=== PATIENT | male | born 1960 | race Caucasian/White ===

== ENCOUNTER 2023-04-20 20:40 | Inpatient (IN) | payer OTHER ==
[~2023-04-20] VITALS: Ht 185.4 cm; Wt 95.2 kg
[~2023-04-20 20:40] MED LIST: B COMPLEX FORM0.4 MG PO; B-121000 MC3 PO; BUSP10 PO; DIVA250EC PO; DULO30 PO; FLONASE ALLERG9.9 M2; GABA300 PO; MELA3 PO; Naltrexone HCl50 MG PO; OMEP20ER PO; PRAZ2 PO; THERA-D2000 UNIT PO
[2023-04-20 21:01] LABS: BASOPHILS ABSOLUTE AUTO 0.07 K/mm3 (0.00-0.23); BASOPHILS PERCENT AUTO 1 % (0-2); EOSINOPHILS PERCENT AUTO 2 % (0-6); Hematocrit 33.9 % (37.0-53.0); Hemoglobin 11.5 g/dL (13.5-17.5); IMMATURE GRAN ABSOLUTE AUTO 0.05 K/mm3 (0.00-0.10); IMMATURE GRAN PERCENT AUTO 1 % (0-1); LYMPHOCYTES ABSOLUTE AUTO 3.34 K/mm3 (0.84-5.20); LYMPHOCYTES PERCENT AUTO 37 % (21-46); MONOCYTES ABSOLUTE AUTO 0.75 K/mm3 (0.16-1.47); MONOCYTES PERCENT AUTO 8 % (4-13); Mean Corpuscular HGB 36.2 pg (26.0-34.0); Mean Corpuscular HGB Conc 33.9 g/dL (31.5-36.5); Mean Corpuscular Volume 107 fL (80-100); Mean Platelet Volume 9.7 fL (9.1-12.4); NEUTROPHILS ABSOLUTE AUTO 4.53 K/mm3 (1.96-9.15); NEUTROPHILS PERCENT AUTO 51 % (41-73); Platelet Count 322 K/mm3 (150-400); RDW Coefficient Variation 13.7 % (11.7-14.2); RDW Standard Deviation 54.6 fL (35.1-46.3); Red Blood Cell Count 3.18 M/mm3 (4.30-5.90); White Blood Cell Count 8.94 K/mm3 (4.00-11.30)
[2023-04-20 21:16] LABS: International Normalized Ratio 1.03; Prothrombin Time Results 10.8 Sec (9.7-11.5)
[2023-04-20 21:20] LABS: Albumin, Blood 3.4 g/dL (3.4-5.0); Bilirubin, Total 0.7 mg/dL (0.1-1.0); Bun/Creatinine Ratio 10.7 (12.0-20.0); Calcium, Blood 8.7 mg/dL (8.5-10.1); Creatinine, Blood 1.12 mg/dL (0.60-1.20); Globulin, Blood 3.3 g/dL (2.2-4.0); Potassium, Blood 3.8 mmol/L (3.5-5.5); Total Protein, Blood 6.7 g/dL (6.4-8.2)
[2023-04-20] MEDS ORDERED: METO25ER PO (21:46)
[2023-04-20] MEDS ORDERED: MELATONIN5 M1 PO (21:47)
[2023-04-20] MEDS ORDERED: XARELTO1 MG/1 ML PO (21:50)
[2023-04-21] VITALS (16 sets, daily range): BP systolic 128–177; BP diastolic 74–95
--- NOTE | 2023-04-21 03:14 | NUR ---
ADMIT TO ROOM 215 VIA RACHEL PT ARRIVED TO FLOOR VIA RACHEL FROM ER. A&OX4, VSS, REPORTS 7/10 PAIN TO LEFT ANKLE.ABLE TO WIGGLE TOES, WARM TO TOUCH, GOOD CAP REFILL, DENIES N/T. PT NPO FOR SURGERY SCHEDULED FOR A.M. ORIENTED TO ROOM, CALL LIGHT W/IN REACH.
[2023-04-21 04:26] LABS: BASOPHILS ABSOLUTE AUTO 0.07 K/mm3 (0.00-0.23); BASOPHILS PERCENT AUTO 1 % (0-2); EOSINOPHILS ABSOLUTE AUTO 0.16 K/mm3 (0.00-0.68); EOSINOPHILS PERCENT AUTO 2 % (0-6); Hematocrit 34.6 % (37.0-53.0); Hemoglobin 11.5 g/dL (13.5-17.5); IMMATURE GRAN ABSOLUTE AUTO 0.04 K/mm3 (0.00-0.10); IMMATURE GRAN PERCENT AUTO 0 % (0-1); LYMPHOCYTES ABSOLUTE AUTO 2.69 K/mm3 (0.84-5.20); LYMPHOCYTES PERCENT AUTO 25 % (21-46); MONOCYTES ABSOLUTE AUTO 0.94 K/mm3 (0.16-1.47); MONOCYTES PERCENT AUTO 9 % (4-13); Mean Corpuscular HGB 35.7 pg (26.0-34.0); Mean Corpuscular HGB Conc 33.2 g/dL (31.5-36.5); Mean Corpuscular Volume 108 fL (80-100); Mean Platelet Volume 9.9 fL (9.1-12.4); NEUTROPHILS ABSOLUTE AUTO 6.85 K/mm3 (1.96-9.15); NEUTROPHILS PERCENT AUTO 64 % (41-73); Platelet Count 302 K/mm3 (150-400); RDW Coefficient Variation 13.7 % (11.7-14.2); RDW Standard Deviation 54.7 fL (35.1-46.3); Red Blood Cell Count 3.22 M/mm3 (4.30-5.90); White Blood Cell Count 10.75 K/mm3 (4.00-11.30)
[2023-04-21 04:55] LABS: Bun/Creatinine Ratio 13.4 (12.0-20.0); Calcium, Blood 8.7 mg/dL (8.5-10.1); Creatinine, Blood 0.97 mg/dL (0.60-1.20); Potassium, Blood 3.6 mmol/L (3.5-5.5)
--- NOTE | 2023-04-21 05:49 | NUR ---
SHIFT SUMMARY NO ACUTE CHANGES THIS SHIFT, PT CONTINUES TO REPORT 6-8/10 PAIN. MEDICATED W/ FENTANYL @0430 WITH MINIMAL PAIN RELIEF. PT DECLINES USE OF ICE TO ANKLE. CONTINUE W/ PLANS FOR SURGERY TODAY. CALL LIGHT W/IN REACH.
--- NOTE | 2023-04-21 12:29 | NUR ---
TO DAY SURGERY BY BED
--- NOTE | 2023-04-21 15:24 | NUR ---
1510 RETURNED TO ROOM, DROWSY CONVERSANT WHEN TALKED TO. PT DENIES ANY PAIN TO SPLINT AND ALESSANDRA WRAP DRY AND INTACT TO LLE, PT WIGGLES TOES WHEN ASKED TO DO SO. PT DENIES ANY NUMBNESS OR TINGLING, CAP REFILL LESS THAN 3 SECONDS. PT INSTRUCTED ON PAIN SCALE AND INSTRUCTED TO CALL IF BEGINS TO HAVE PAIN
--- NOTE | 2023-04-21 18:19 | NUR ---
PT REPORTS ADEQUATE PAIN CONTROL. SPLINT TO LEFT LEG DRY AND INTACT.LEFT LEG ELEVATED ON PILLOWS-PT DECLINES ICE. PT HOPING TO DISCHARGE HOME IN MORNING
[2023-04-22 05:48] VITALS: BP 154/76
--- NOTE | 2023-04-22 06:27 | NUR ---
SHIFT SUMMARY NO ACUTE CHANGES OVERNIGHT PT POD 0 LEFT ANKLE ORIF, LLE IS SPLINTED AND WRAPPED WITH ALESSANDRA. PT DENIES N/T IN AFFECTED EXT AND IS ABLE TO WIGGLE TOES. PT HAS BEEN VOIDING AND IS TOLERATING PO INTAKE. POST OP VITALS ARE STABLE. PT STILL AWAITING PT EVAL AT THIS TIME. BED IN LOWEST POSITION, CALL LIGHT WITHIN REACH.
[2023-04-22 08:59] VITALS: BP 130/93
[2023-04-22] MEDS ORDERED: Percocet 5-3251 EACH PO (12:04)
[2023-04-22] MEDS ORDERED: AMOCLA500 PO (12:05)
--- NOTE | 2023-04-22 13:05 | NUR ---
DISCHARGE SUMMARY PT POD #1 FOR ORIF OF L LEG. LEG IN SPLINT W/ALESSANDRA WRAP, CDI. DR. ORDONEZ SAW PT PRIOR TO DC AND GAVE INSTRUCTIONS FOR CARE. PT WORKED WITH PHYSICAL THERAPY AND DID VERY WELL MAINTAINING NON-WEIGHT BEARING ON THAT L LEG. WRITTEN PRES[facility] PROVIDED TO PT [facility]. PT DC'D HOME WITH SON.
== END 2023-04-22 13:03 | disposition home or self-care (01) | DRG 493 ==
LOC: ER 20:40 → SURS 20:41
PROVIDERS: Emergency Medicine; Podiatrist Foot & Ankle Surgery; ADMIT Student in an Organized Health Care Education/Training Program
PROC: 0MQR0ZZ Repair Left Ankle Bursa and Ligament, Open Approach (ICD-10-PCS; 2023-04-21)
PROC: 3E0234Z Introduction of Serum, Toxoid and Vaccine into Muscle, Percutaneous Approach (ICD-10-PCS; 2023-04-21)
PROC: 0QSK06Z Reposition Left Fibula with Intramedullary Internal Fixation Device, Open Approach (ICD-10-PCS; principal; 2023-04-21 12:30)
DX: S82.842B Displaced bimalleolar fracture of left lower leg, initial encounter for open fracture type I or II (principal); I48.20 Chronic atrial fibrillation, unspecified; S93.422A Sprain of deltoid ligament of left ankle, initial encounter; S60.512A Abrasion of left hand, initial encounter; Z23 Encounter for immunization; M54.50 Low back pain, unspecified; E66.9 Obesity, unspecified; S00.83XA Contusion of other part of head, initial encounter; K21.9 Gastro-esophageal reflux disease without esophagitis; F41.9 Anxiety disorder, unspecified; F32.A Depression, unspecified; Z98.1 Arthrodesis status; Z98.890 Other specified postprocedural states; Z68.27 Body mass index [BMI] 27.0-27.9, adult; Z79.01 Long term (current) use of anticoagulants; Z87.891 Personal history of nicotine dependence; Z88.5 Allergy status to narcotic agent; Z88.8 Allergy status to other drugs, medicaments and biological substances; Z91.018 Allergy to other foods; Z79.899 Other long term (current) drug therapy; Y08.02XA Assault by strike by baseball bat, initial encounter; Y92.481 Parking lot as the place of occurrence of the external cause
CPT/HCPCS: 27788; 36415; 70450; 73560-LT; 73600; 73700; 80048; 80053; 83735; 85025; 85610; 85730; 90471; 90714; 93005; 93010; 96374-59; 96375; 96375-59; 96376; 96376-59; 97110; 97161; 97530; 99152; 99285-25; A9270; C1713; G0378; J0690; J1100; J1170; J1885; J2370; J2405; J2704; J2795; J3010; J7030; J7120